=== PATIENT | female | born 1990 | race Hispanic/Latino ===

== ENCOUNTER 2018-12-12 19:39 | Emergency (ER) | payer BC ==
[2018-12-12 19:56] VITALS: RESP 18; O2SAT 98
[2018-12-12 20:50] LABS: SQUAMOUS EPITHIAL < 1 /hpf (0-5); URINE BACTERIA RARE (<OCC); URINE BILIRUBIN NEGATIVE (NEGATIVE); URINE BLOOD 3+ (NEGATIVE); URINE CLARITY Hazy (Clear); URINE COLOR Yellow (YELLOW); URINE GLUCOSE (UA) NORMAL (Normal); URINE LEUKOCYTE ESTERASE 2+ Leu/uL (Negative); URINE PROTEIN 2+ mg/dL (NEGATIVE); URINE UROBILINOGEN NORMAL mg/dL (0.2-1.0)
--- NOTE | 2018-12-12 20:54 | C.PDOC ---
History Of Present Illness 28 year old female presents to ED with complaint of dysuria and hematuria since this morning. Patient has a past history of UTI once in 2008. Patient has not taken any medication for pain. She denies abdominal pain, back pain, nausea, vomiting, fever, or chills. Time Seen by Provider: 12/12/18 19:57 Chief Complaint (Nursing): Female Genitourinary History Per: Patient History/Exam Limitations: no limitations Onset/Duration Of Symptoms: Hrs (12) Current Symptoms Are (Timing): Still Present Quality Of Discomfort: "Pain" Associated Symptoms: Urinary Symptoms (dysuria and hematuria). denies: Fever, Chills, Nausea, Vomiting, Back Pain Alleviating Factors: None Abnormal Vaginal Bleeding: No Past Medical History Reviewed: Historical Data, Nursing Documentation, Vital Signs Vital Signs: Last Vital Signs Temp 98.8 F 12/12/18 19:51 Pulse 77 12/12/18 19:51 Resp 18 12/12/18 19:51 BP 109/74 12/12/18 19:51 Pulse Ox 98 12/12/18 19:51 Primary Care Provider: Omer Marshall - Medical History PMH: No Chronic Diseases Surgical History: No Surg Hx Family History: States: Unknown Family Hx - Social History Hx Alcohol Use: Yes Hx Substance Use: No Review Of Systems Constitutional: Negative for: Fever, Chills, Weakness Gastrointestinal: Negative for: Nausea, Vomiting, Abdominal Pain Genitourinary: Positive for: Dysuria, Hematuria Musculoskeletal: Negative for: Back Pain Neurological: Negative for: Weakness, Numbness Physical Exam - Physical Exam Appears: Well, Non-toxic, No Acute Distress Skin: Normal Color, Warm, Dry Head: Atraumatic, Normacephalic Neck: Normal ROM, Supple Chest: Symmetrical, No Deformity Gastrointestinal/Abdominal: Bowel Sounds (normoactive), Soft, No Tenderness, No Distention, No Guarding, No Rebound Back: No CVA Tenderness Pelvic: Other (deferred) Extremity: Capillary Refill (<2 seconds) Pulses: Left Dorsalis Pedis: Normal, Right Dorsalis Pedis: Normal Neurological/Psych: Oriented x3, Normal Speech, Normal Cognition ED Course And Treatment - Laboratory Results Lab Results: Urine Color Yellow (YELLOW) 12/12/18 20:29 Urine Clarity Hazy (Clear) 12/12/18 20:29 Urine pH 7.0 (5.0-8.0) 12/12/18 20:29 Ur Specific [place] 1.019 (1.003-1.030) 12/12/18 20: Urine Protein 2+ mg/dL (NEGATIVE) H 12/12/18 20:29 Urine Glucose (UA) Normal mg/dL (Normal) 12/12/18 20:29 Urine Ketones Negative mg/dL (NEGATIVE) 12/12/18 20:29 Urine Blood 3+ (NEGATIVE) H 12/12/18 20:29 Urine Nitrate Positive (NEGATIVE) H 12/12/18 20:29 Urine Bilirubin Negative (NEGATIVE) 12/12/18 20: Urine Urobilinogen Normal mg/dL (0.2-1.0) 12/12/18 20:29 Ur Leukocyte Esterase 2+ Myron/uL (Negative) H 12/12/18 20:29 Urine WBC (Auto) 329 /hpf (0-5) H 12/12/18 20: Urine RBC (Auto) 879 /hpf (0-3) H 12/12/18 20:29 Ur Squamous Epith Cells < 1 /hpf (0-5) 12/12/18 20:29 Urine Bacteria Rare (<OCC) 12/12/18 20:29 Urine HCG, Qual Negative (NEGATIVE) 12/12/18 20:29 Urine HCG, Qual Negative (NEGATIVE) 12/12/18 20:29 O2 Sat by Pulse Oximetry: 98 (in RA) Pulse Ox Interpretation: Normal Progress Note: U-preg and UA ordered for patient. UA reveals UTI. Patient given pyridium PO, macrobid and motrin. RX given at discharge and pt will follow up with PMD Disposition Counseled Patient/Family Regarding: Diagnosis, Need For Followup, Rx Given - Disposition Referrals: Omer Marshall MD [Medical Doctor] - Disposition: HOME/ ROUTINE Disposition Time: 21:21 Condition: STABLE Additional Instructions: Please follow up with PMD Increase PO fluids Take medications as directed Return to ER if worse Prescriptions: Ibuprofen [Motrin] 600 mg PO Q6H #24 tab Nitrofurantoin Macrocrystals [Macrobid] 1 cap PO BID #14 cap Phenazopyridine HCl [Pyridium] 100 mg PO TID #6 tab Instructions: Urinary Tract Infection, Adult (DC) Forms: [facility] ([place]) - Clinical Impression Clinical Impression: UTI (urinary tract infection) - 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 (Jaimee England) - Scribe Statement The provider has reviewed the documentation as recorded by the Scribe (Jaimee England) All medical record entries made by the Scribe were at my direction and personally dictated by me. I have reviewed the chart and agree that the record accurately reflects my personal performance of the history, physical exam, medical decision making, and the department course for this patient. I have also personally directed, reviewed, and agree with the discharge instructions and disposition.
[2018-12-12 21:42] VITALS: BP 121/72; PULSE 79; TEMP 98.1
== END 2018-12-12 21:42 | disposition home or self-care (01) ==
LOC: C.ER 19:39
DX: N39.0 Urinary tract infection, site not specified (principal)